=== PATIENT | female | born 1950 | race Two or more races ===

== ENCOUNTER 2017-02-26 18:12 | Emergency (ER) | payer MEDICARE, BC, MEDICAID ==
[~2017-02-26] VITALS: Ht 157.5 cm; Wt 76.2 kg
[2017-02-26] MEDS ORDERED: LORA0.5T PO (18:27)
[2017-02-26] MEDS ORDERED: VALERIAN (18:27)
[2017-02-26] MEDS ORDERED: LOSA25TA13 PO (18:27)
--- NOTE | 2017-02-26 19:10 | NUR ---
Patient discharged to home in stable conditon. Written and verbal after care instructions given. Patient verbalizes understanding of instructions. PATIENT LEFT WITH STABLE GAIT.
[2017-02-26 19:11] VITALS: BP 147/81
== END 2017-02-26 19:12 | disposition home or self-care (01) ==
LOC: ER 18:12
DX: I10 Essential (primary) hypertension (principal); Z85.3 Personal history of malignant neoplasm of breast; Z79.899 Other long term (current) drug therapy
CPT/HCPCS: 93005; A4663